=== PATIENT | female | born 1980 | race Caucasian/White ===

== ENCOUNTER 2016-04-21 23:27 | Emergency (ER) | payer OTHER ==
[~2016-04-21] VITALS: Ht 160 cm; Wt 47.0 kg
[2016-04-21 23:32] VITALS: Ht 160 cm; Wt 47.0 kg
[2016-04-21] MEDS ORDERED: LORAZEPAM 2 MG INJ ONE (23:44)
[2016-04-22] MEDS ORDERED: LORAZEPAM 2 MG INJ IM ONE
[2016-04-22] MEDS ORDERED: LORAZEPAM 2 MG INJ IV ONE
[2016-04-22] MEDS ORDERED: BACITRACIN 0.9 GM OINT TOP ONE (01:00)
[2016-04-22] MEDS ORDERED: DIPHTH/TET/ACEL PERTUSS (ADULT) 0.5 ML VIAL IM* ONE (01:00)
--- NOTE | 2016-04-22 02:24 | ERD ---
ER Documentation Chief Complaint Date/Time DATE: 04/22/16 TIME: 02:21 Chief Complaint sp drug use 30 minutes ago marijuana- crying and yelling in triage HPI This 35-year-old female is brought in with friends for being very agitated and having paranoid behavior after eating edible marijuana lozenge. According to patient and friends no other drugs including methamphetamines were used. Patient is very agitated and friend states this did not happen until after she took the drug. ROS All systems reviewed and are negative except as per history of present illness. Allergies Allergies: Coded Allergies: No Known Allergy (Unverified , 04/21/16) PMhx/Soc Medical and Surgical Hx: Unable to obtain Smoking Status: Unknown if ever smoked Physical Exam Vitals Vital Signs Date Time Temp Pulse Resp B/P Pulse Ox O2 Delivery O2 Flow Rate FiO2 04/22/16 00:15 98.3 98 16 112/68 97 04/21/16 23:35 120 24 100 Room Air 04/21/16 23:32 98.3 63 20 118/65 100 Physical Exam Const: [] Very agitated, combative Head: Atraumatic Eyes: Normal Conjunctiva, EOMI, PRL ENT: Normal External Ears, Nose and Mouth. Neck: Full range of motion..~ No meningismus. Resp: Clear to auscultation bilaterally Cardio: Regular tachycardia, no murmurs Skin: No petechiae or rashes Ext: No cyanosis, or edema Neur: Awake and alert and oriented 3, not cooperating with cranial nerve exam at this time. Psych: Very agitated and anxious Results 24 hrs Current Medications Medications (Trade) Dose Ordered Sig/Fabian Route PRN Reason Start Time Stop Time Status Last Admin Dose Admin Lorazepam (Ativan) 2 mg ONCE ONCE IV 04/22/16 00:00 04/22/16 00:00 DC Lorazepam (Ativan) 2 mg ONCE ONCE IM 04/22/16 00:00 04/22/16 00:01 DC 04/21/16 23:57 Bacitracin (Bacitracin Oint (Ud)) 1 applic ONCE ONCE TOP 04/22/16 01:00 04/22/16 01:20 DC Diphtheria/ Tetanus/Acell Pertussis (Adacel) 0.5 ml ONCE ONCE IM* 04/22/16 01:00 04/22/16 01:20 DC Procedures/MDM Patient appear to be having paranoid psychotic features from overdose of edible marijuana. She was given 2 mg of Ativan IM and needed to be restrained initially. At the abdomen she calmed down significantly. She was taking good p.o. in the emergency room and feeling better. Her friend seem very responsible and care for her. She is being discharged into their care. Patient did upright with a neuro exam and cranial nerves II through XII intact as well as no cerebellar deficits and a normal gait. Discharging with primary care follow-up in the next 2-3 days. Counseled at bedside and the dangers of irritable marijuana. Departure Diagnosis: Primary Impression: Marijuana use Additional Impression: Drug overdose Condition: Stable Patient Instructions: Overdose, Accidental (Adult) Referrals: [facility] YOU HAVE RECEIVED A MEDICAL SCREENING EXAM AND THE RESULTS INDICATE THAT YOU DO NOT HAVE A CONDITION THAT REQUIRES URGENT TREATMENT IN THE EMERGENCY DEPARTMENT. FURTHER EVALUATION AND TREATMENT OF YOUR CONDITION CAN WAIT UNTIL YOU ARE SEEN IN YOUR DOCTORS OFFICE WITHIN THE NEXT 1-2 DAYS. IT IS YOUR RESPONSIBILITY TO MAKE AN APPOINTMENT FOR FOLOW-UP CARE. IF YOU HAVE A PRIMARY DOCTOR --you should call your primary doctor and schedule an appointment IF YOU DO NOT HAVE A PRIMARY DOCTOR YOU CAN CALL OUR PHYSICIAN REFERRAL HOTLINE AT IF YOU CAN NOT AFFORD TO SEE A PHYSICIAN YOU CAN CHOSE FROM THE FOLLOWING [facility] CLINICS [facility] [address] [facility]. [facility] [address] [facility] [facility] [address] [facility] [facility] [address] [facility] [facility] [address] [facility]. [facility]. [address] [facility]. [facility] YOU HAVE RECEIVED A MEDICAL SCREENING EXAM AND THE RESULTS INDICATE THAT YOU DO NOT HAVE A CONDITION THAT REQUIRES URGENT TREATMENT IN THE EMERGENCY DEPARTMENT. FURTHER EVALUATION AND TREATMENT OF YOUR CONDITION CAN WAIT UNTIL YOU ARE SEEN IN YOUR DOCTORS OFFICE WITHIN THE NEXT 1-2 DAYS. IT IS YOUR RESPONSIBILITY TO MAKE AN APPOINTMENT FOR FOLOW-UP CARE. IF YOU HAVE A PRIMARY DOCTOR --you should call your primary doctor and schedule and appointment IF YOU DO NOT HAVE A PRIMARY DOCTOR YOU CAN CALL OUR PHYSICIAN REFERRAL HOTLINE AT . IF YOU CAN NOT AFFORD TO SEE A PHYSICIAN YOU CAN CHOSE FROM THE FOLLOWING [facility] INSTITUTIONS: [facility] [address] [place] [address] [facility] [address] [place] [address] [facility] + [facility] [address] [place] [address] Additional Instructions: Call your primary care doctor TOMORROW for an appointment during the next 1-2 days.See the doctor sooner or return here if your condition worsens before your appointment time. CORKY ISIDRO DO Apr 22, 2016 02:24
[2016-04-22] MEDS ORDERED: ONDANSETRON (ODT) 4 MG TAB ODT ONE (02:33)
[2016-04-22] MEDS ORDERED: ONDANSETRON (ODT) 4 MG TAB ODT STA (02:38)
[2016-04-22 02:39] VITALS: BP 105/70; PULSE 89; RESP 18
== END 2016-04-22 02:47 | disposition home or self-care (01) ==
LOC: E/R 23:27
DX: F12.90 Cannabis use, unspecified, uncomplicated (principal)
CPT/HCPCS: 96372; J2060; Z7502; Z7610